=== PATIENT | male | born 1955 | race Caucasian/White ===

== ENCOUNTER 2024-08-13 01:46 | Inpatient (IN) | payer MEDICARE, MEDICAID ==
[~2024-08-13] VITALS: Ht 170.2 cm; Wt 57.2 kg
[~2024-08-13 01:46] MED LIST: LACT10SO7 PO
[2024-08-13] MEDS ORDERED: ONDANSETRON HCL 4MG/2ML INJ IV STA (03:09)
[2024-08-13 03:40] LABS: DIFFERENTIAL COMMENT 1; HEMATOCRIT. 32.2 % (42.0-52.0); HEMOGLOBIN. 10.7 g/dL (14.0-18.0); MEAN CORPUSCULAR HEMOGLOBIN 33.6 pg (28.0-32.0); MEAN CORPUSCULAR HGB CONC 33.4 g/dL (31.0-37.0); MEAN CORPUSCULAR VOLUME 100.8 fL (80.0-94.0); MEAN PLATELET VOLUME 8.1 fl (7.4-10.4); PLATELET 112 x1000/uL (130-400); RED BLOOD CELL COUNT 3.19 mill/uL (4.7-6.1); WHITE BLOOD COUNT 7.4 x1000/uL (4.5-11.0)
[2024-08-13 03:46] LABS: CHLORIDE 104 mEq/L (98-107); INR 1.1; POTASSIUM 5.7 mEq/L (3.5-5.1); PROTHROMBIN TIME 11.7 sec (9.6-11.0); SODIUM 130 mEq/L (136-145)
[2024-08-13 03:48] LABS: CARBON DIOXIDE 18 mEq/L (21-32)
[2024-08-13 03:49] LABS: CALCIUM 9.2 mg/dL (8.7-10.4)
[2024-08-13 03:54] LABS: AMMONIA 107 uMol/L (<32); GLUCOSE 128 mg/dL (70-105); UREA NITROGEN BLOOD 91 mg/dL (9-23)
[2024-08-13 03:55] LABS: ALANINE AMINOTRANSFERASE 614 IU/L (10-49); ALBUMIN 3.3 g/dL (3.2-4.8); ASPARTATE AMINOTRANSFERASE 697 IU/L (<34)
[2024-08-13 03:56] LABS: BILIRUBIN DIRECT 1.5 mg/dL (<=3.0); BILIRUBIN TOTAL 2.3 mg/dL (0.1-1.0); LACTIC ACID 2.3 mmol/L (0.4-2.0); PROTEIN TOTAL 5.4 g/dL (6.0-8.3)
[2024-08-13 03:59] LABS: CREATININE 2.5 mg/dL (0.6-1.3)
[2024-08-13 04:03] LABS: TROPONIN I HIGH SENSITIVITY 55 ng/L (3.0-53)
[2024-08-13] MEDS: ONDANSETRON HCL 4MG/2ML INJ IV NR (04:27)
[2024-08-13] MEDS ORDERED: DOCUSATE SODIUM 100MG CAPSULE PO PRN (05:30)
[2024-08-13] MEDS ORDERED: LORAZEPAM 0.5MG TABLET PO PRN (05:30)
[2024-08-13] MEDS ORDERED: ONDANSETRON HCL 4MG/2ML INJ IV PRN (05:30)
[2024-08-13] MEDS ORDERED: CLONIDINE 0.1MG TABLET PO PRN (05:30)
[2024-08-13] MEDS ORDERED: ENOXAPARIN 40MG/0.4ML SYR SUBCUT SCH (05:30)
[2024-08-13] MEDS ORDERED: GUAIFENESIN 200MG/10ML SUGAR FREE UDC PO PRN (05:30)
[2024-08-13 06:07] LABS: CREATINE KINASE 51 IU/L (46-171)
[2024-08-13] MEDS: DEXT 5%/0.9% NACL 1,000 ML IV SCH (06:16)
[2024-08-13] MEDS: LACTULOSE 20G/30ML UDC PO NR (06:16)
[2024-08-13] MEDS: DEXTROSE 50% WATER 50ML SYRINGE IV NR ×2 (06:45→18:38)
[2024-08-13] MEDS: INSULIN REGULAR (HUMULIN R) 1000UNITS/10ML VIAL IV NR ×2 (06:45→18:38)
[2024-08-13 07:19] LABS: PLATELET ESTIMATE SLIGHTLY DECREASED
[2024-08-13] MEDS: RIFAXIMIN 550 MG TABLET PO SCH (09:00)
[2024-08-13] MEDS: ENOXAPARIN 30MG/0.3ML SYR SUBCUT SCH (09:30)
[2024-08-13 11:48] LABS: POTASSIUM 5.7 mEq/L (3.5-5.1)
[2024-08-13 12:29] LABS: POTASSIUM 5.5 mEq/L (3.5-5.1)
[2024-08-13] MEDS: CALCIUM CHLORIDE 1GM/10ML SYR IV NR (18:16)
[2024-08-13] MEDS: SODIUM POLYSTYRENE SULFONATE 15 G/60 ML BOT PO NR (18:17)
[2024-08-13 19:29] VITALS: BP 154/83; PULSE 114; RESP 16; TEMP 36.16956; O2SAT 99
[2024-08-13 20:00] VITALS: BP 133/83; PULSE 104; RESP 15; TEMP 36.33624; O2SAT 100
[2024-08-13 21:14] LABS: CREATINE KINASE 43 IU/L (46-171)
[2024-08-13] MEDS: IPRATROPIUM/ALBUTEROL 0.5-3(2.5)MG/3ML NEB HHN PRN (21:30)
[2024-08-13 21:32] VITALS: PULSE 104; RESP 20; O2SAT 99
[2024-08-13 23:00] VITALS: BP 133/83; PULSE 104; RESP 16; TEMP 36.3624
[2024-08-14] VITALS: BP 106/64; PULSE 98; RESP 13; TEMP 35.72508; O2SAT 90
[2024-08-14 04:00] VITALS: BP 86/49; PULSE 42; RESP 14; TEMP 36.22512; O2SAT 92
[2024-08-14 07:39] LABS: CHLORIDE 106 mEq/L (98-107); SODIUM 132 mEq/L (136-145)
[2024-08-14 07:41] LABS: CALCIUM 9.7 mg/dL (8.7-10.4)
[2024-08-14 07:45] LABS: CREATININE 3.1 mg/dL (0.6-1.3)
[2024-08-14 07:46] LABS: GLUCOSE 99 mg/dL (70-105); UREA NITROGEN BLOOD 83 mg/dL (9-23)
[2024-08-14 07:49] LABS: HEMOGLOBIN 12.3 g/dL (14.0-18.0); MEAN CORPUSCULAR HEMOGLOBIN 33.4 pg (28.0-32.0); MEAN CORPUSCULAR HGB CONC 31.6 g/dL (31.0-37.0); MEAN CORPUSCULAR VOLUME 105.7 fL (80.0-94.0); PLATELET 100 x1000/uL (130-400); RED BLOOD CELL COUNT 3.69 mill/uL (4.7-6.1); WHITE BLOOD COUNT 9.2 x1000/uL (4.5-11.0)
[2024-08-14 08:08] VITALS: BP 78/36; PULSE 88; RESP 20; TEMP 35.89176; O2SAT 100
[2024-08-14 08:37] LABS: CARBON DIOXIDE < 10 mEq/L (21-32)
[2024-08-14 08:38] LABS: AMMONIA 114 uMol/L (<32)
[2024-08-14] MEDS ORDERED: LACTULOSE 20G/30ML UDC PO SCH (09:00)
[2024-08-14] MEDS: ALBUTEROL (0.083%) 2.5MG/3ML NEB HHN NR (09:30)
[2024-08-14] MEDS: SODIUM CHLORIDE 0.9% 500 ML IV ONE (09:47)
[2024-08-14] MEDS: SODIUM POLYSTYRENE SULFONATE 15 G/60 ML BOT PO NR (10:07)
[2024-08-14] MEDS: DEXTROSE 50% WATER 50ML SYRINGE IV NR (10:27)
[2024-08-14] MEDS: INSULIN REGULAR (HUMULIN R) 1000UNITS/10ML VIAL IV NR (10:31)
[2024-08-14] MEDS: SODIUM BICARBONATE 8.4% 50MEQ/50ML SYR IV NR ×2 (10:32→14:23)
[2024-08-14] MEDS: CALCIUM CHLORIDE 1GM/10ML SYR IV NR (10:35)
[2024-08-14] MEDS: LACTULOSE ENEMA 1,000ML BOTTLE PR NR (12:08)
[2024-08-14 12:10] VITALS: BP 78/44; PULSE 86; RESP 20; TEMP 35.89176; O2SAT 100
[2024-08-14 12:13] LABS: BG BASE EXCESS -13.7 mmol/L (-2.0-3.0); BG CARBOXYHEMOGLOBIN 0.3 % (0.5-1.5); BG FRACTION INSPIRED OXYGEN 32; BG HCO3 ACT 8.5 mmol/L (21.0-28.0); BG METHEMOGLOBIN 0.3 % (0.5-1.5); BG OXYHEMOGLOBIN 97.4 % (94.0-98.0); BG PCO2 13.6 mmHg (35.0-48.0); BG PH 7.413 (7.350-7.450); BG PO2 114.5 mmHg (83.0-108.0); BG SAMPLE SITE RIGHT FEMORAL; BG TOTAL HEMOGLOBIN 10.5 g/dL (13.5-17.5); BG VENT MODE NASAL CANNULA
[2024-08-14] MEDS ORDERED: MIDODRINE HCL 5MG TABLET PO SCH (13:00)
[2024-08-14] MEDS ORDERED: MIDODRINE HCL 5MG TABLET NG SCH (13:00)
[2024-08-14] MEDS: ALBUMIN HUMAN 25GM/100ML (25%) IV NR (14:29)
[2024-08-14] MEDS: LACTULOSE 20G/30ML UDC NG SCH (15:04)
[2024-08-14] MEDS: PANTOPRAZOLE SODIUM 40 MG/VIAL IV SCH (15:35)
[2024-08-14] MEDS: PIPERACILLIN/TAZO 3.375G/50ML 50 ML IV SCH (15:37)
[2024-08-14 16:00] VITALS: BP 84/49; PULSE 82; RESP 20; TEMP 36.44736; O2SAT 98
[2024-08-14 16:03] LABS: POTASSIUM 5.9 mEq/L (3.5-5.1)
[2024-08-14] MEDS: SODIUM BICARBONATE 150 MEQ in DEXTROSE 5% WATER 850 ML IV SCH (16:30)
[2024-08-14] MEDS: MIDODRINE HCL 5MG TABLET NG SCH (16:31)
[2024-08-14] MEDS ORDERED: LEVOFLOXACIN 500MG PREMIX 100 ML IV SCH (18:45)
[2024-08-14 20:00] VITALS: BP 79/54; PULSE 81; RESP 18; TEMP 36.22512; O2SAT 97
[2024-08-14 20:10] LABS: CLARITY URINE CLEAR (CLEAR); COLOR URINE DARK YELLOW (YELLOW); GLUCOSE URINE TRACE (NEGATIVE); KETONES URINE NEGATIVE (NEGATIVE); LEUKOCYTE ESTERASE URINE 1+ (NEGATIVE); NITRITE URINE POSITIVE (NEGATIVE); OCCULT BLOOD URINE NEGATIVE (NEGATIVE); PROTEIN URINE 1+ (NEGATIVE); SPECIFIC GRAVITY URINE 1.018 (1.005-1.030)
[2024-08-14 21:40] LABS: BACTERIA URINE 2+; RBC URINE 0-2 /hpf (0-2); SQUAMOUS EPITHELIAL CELL URINE FEW /lpf (RARE/1+)
[2024-08-14] MEDS: LEVOFLOXACIN 500MG PREMIX 100 ML IV SCH (22:23)
[2024-08-14] MEDS: RIFAXIMIN 550 MG TABLET NG SCH (22:23)
[2024-08-15] VITALS: BP 117/69; PULSE 85; RESP 18; TEMP 36.6696; O2SAT 98
[2024-08-15 04:00] VITALS: BP 92/53; PULSE 82; RESP 18; TEMP 36.83628; O2SAT 97
[2024-08-15 06:22] LABS: CARBON DIOXIDE 14 mEq/L (21-32); CHLORIDE 109 mEq/L (98-107); POTASSIUM 5.4 mEq/L (3.5-5.1); SODIUM 141 mEq/L (136-145)
[2024-08-15 06:23] LABS: CALCIUM 9.2 mg/dL (8.7-10.4)
[2024-08-15 06:26] LABS: AMMONIA 43 uMol/L (<32)
[2024-08-15 06:28] LABS: CREATININE 3.6 mg/dL (0.6-1.3); UREA NITROGEN BLOOD 96 mg/dL (9-23)
[2024-08-15 06:29] LABS: ALANINE AMINOTRANSFERASE 993 IU/L (10-49)
[2024-08-15 06:30] LABS: ALBUMIN 2.3 g/dL (3.2-4.8); GAMMA GLUTAMYL TRANSPEPTIDASE 294 IU/L (<73); PHOSPHORUS 4.1 mg/dL (2.5-4.9)
[2024-08-15 06:42] LABS: ASPARTATE AMINOTRANSFERASE 1382 IU/L (<34)
[2024-08-15 06:51] LABS: LACTIC ACID 8.2 mmol/L (0.4-2.0)
[2024-08-15 06:53] LABS: GLUCOSE 42 mg/dL (70-105)
[2024-08-15 08:00] VITALS: BP 90/50; PULSE 70; RESP 16; TEMP 36.6696; O2SAT 97
[2024-08-15] MEDS ORDERED: LACTULOSE ENEMA 1,000ML BOTTLE PR SCH (09:00)
[2024-08-15] MEDS ORDERED: LACTULOSE 20G/30ML UDC PR SCH (09:00)
[2024-08-15] MEDS ORDERED: SODIUM POLYSTYRENE SULFONATE 15 G/60 ML BOT PO ONE (09:45)
[2024-08-15 10:29] LABS: HEMATOCRIT. 27.4 % (42.0-52.0); HEMOGLOBIN. 9.2 g/dL (14.0-18.0); MEAN CORPUSCULAR HEMOGLOBIN 34.7 pg (28.0-32.0); MEAN CORPUSCULAR HGB CONC 33.5 g/dL (31.0-37.0); MEAN CORPUSCULAR VOLUME 103.4 fL (80.0-94.0); MEAN PLATELET VOLUME 11.1 fl (7.4-10.4); RED BLOOD CELL COUNT 2.65 mill/uL (4.7-6.1); RED CELL DISTRIBUTION WIDTH 18.1 % (11.6-14.6)
[2024-08-15 10:57] LABS: DIFFERENTIAL COMMENT 1
[2024-08-15 10:59] LABS: PLATELET 43 x1000/uL (130-400)
[2024-08-15] MEDS: SODIUM ZIRCONIUM CYCLOSILICATE 10GM/PACKET PO NR (11:01)
[2024-08-15] MEDS: MAGNESIUM 2 G PREMIX 50 ML IV NR (11:07)
[2024-08-15 12:00] VITALS: BP 59/33; PULSE 64; RESP 18; TEMP 35.94732; O2SAT 98
[2024-08-15] MEDS: ALBUMIN HUMAN 25GM/100ML (25%) IV NR (13:40)
[2024-08-15 16:00] VITALS: BP 51/28; PULSE 67; RESP 18; TEMP 36.00288; O2SAT 98
[2024-08-15 16:17] LABS: ANISOCYTOSIS 2+; NUCLEATED RED BLOOD CELLS 9 /100 WBC; PLATELET ESTIMATE MARKEDLY DECREASED
[2024-08-15] MEDS ORDERED: DOCUSATE SODIUM SUGAR FREE 100MG/10ML UDC NG PRN (21:15)
[2024-08-15 22:12] LABS: POTASSIUM 5.2 mEq/L (3.5-5.1)
[2024-08-15 22:14] LABS: CALCIUM 8.9 mg/dL (8.7-10.4)
[2024-08-15 22:18] LABS: CREATININE 3.7 mg/dL (0.6-1.3)
[2024-08-16] VITALS (12 sets, daily range): BP systolic 45–58; BP diastolic 25–29; PULSE 20–56; RESP 20–24; TEMP 34.78056–36.3918; O2SAT 94–97
[2024-08-16 06:42] LABS: POTASSIUM 5.3 mEq/L (3.5-5.1)
[2024-08-16 06:43] LABS: CALCIUM 8.8 mg/dL (8.7-10.4)
[2024-08-16 06:44] LABS: HEMATOCRIT 27.2 % (42.0-52.0); HEMOGLOBIN 9.1 g/dL (14.0-18.0); MEAN CORPUSCULAR HGB CONC 33.3 g/dL (31.0-37.0); MEAN CORPUSCULAR VOLUME 104.9 fL (80.0-94.0); RED CELL DISTRIBUTION WIDTH 19.6 % (11.6-14.6)
[2024-08-16 06:48] LABS: CREATININE 3.8 mg/dL (0.6-1.3)
[2024-08-16 06:51] LABS: PLATELET 9 x1000/uL (130-400)
[2024-08-16 06:59] LABS: LACTIC ACID 9.4 mmol/L (0.4-2.0)
[2024-08-17] VITALS: BP 37/15; PULSE 42; RESP 14; TEMP 35.61396; O2SAT 94
[2024-08-17] LABS: HEMATOCRIT. 29.2 % (42.0-52.0); MEAN CORPUSCULAR HEMOGLOBIN 35.1 pg (28.0-32.0); MEAN CORPUSCULAR HGB CONC 30.9 g/dL (31.0-37.0); MEAN CORPUSCULAR VOLUME 113.3 fL (80.0-94.0); MEAN PLATELET VOLUME 9.8 fl (7.4-10.4); RED BLOOD CELL COUNT 2.58 mill/uL (4.7-6.1); RED CELL DISTRIBUTION WIDTH 20.9 % (11.6-14.6)
[2024-08-17 00:44] LABS: DIFFERENTIAL COMMENT 1; PLATELET 8 x1000/uL (130-400)
[2024-08-17 03:27] LABS: NUCLEATED RED BLOOD CELLS 6 /100 WBC
[2024-08-17 03:28] LABS: PLATELET ESTIMATE DECREASED
== END 2024-08-17 03:27 | DRG 871 ==
LOC: ER 01:46 → 5WST 19:06 → 8WST 19:45 → 6EST 08-15 09:34
PROVIDERS: ADMIT Preventive Medicine Clinical Informatics; ATTEND Preventive Medicine Clinical Informatics
PROC: 30233R1 Transfusion of Nonautologous Platelets into Peripheral Vein, Percutaneous Approach (ICD-10-PCS; principal; 2024-08-16)
DX: A41.9 Sepsis, unspecified organism (principal); G93.41 Metabolic encephalopathy; L89.153 Pressure ulcer of sacral region, stage 3; N17.0 Acute kidney failure with tubular necrosis; E87.1 Hypo-osmolality and hyponatremia; E46 Unspecified protein-calorie malnutrition; R64 Cachexia; E87.4 Mixed disorder of acid-base balance; K76.6 Portal hypertension; Z68.1 Body mass index [BMI] 19.9 or less, adult; R65.20 Severe sepsis without septic shock; K70.31 Alcoholic cirrhosis of liver with ascites; E87.5 Hyperkalemia; D69.6 Thrombocytopenia, unspecified; Z66 Do not resuscitate; S80.01XA Contusion of right knee, initial encounter; X58.XXXA Exposure to other specified factors, initial encounter; E86.0 Dehydration; K40.90 Unilateral inguinal hernia, without obstruction or gangrene, not specified as recurrent; L89.626 Pressure-induced deep tissue damage of left heel; N20.0 Calculus of kidney; F10.11 Alcohol abuse, in remission; F41.9 Anxiety disorder, unspecified; K21.9 Gastro-esophageal reflux disease without esophagitis; F03.90 Unspecified dementia, unspecified severity, without behavioral disturbance, psychotic disturbance, mood disturbance, and anxiety; E83.42 Hypomagnesemia; Z74.01 Bed confinement status; Z51.5 Encounter for palliative care; Z82.49 Family history of ischemic heart disease and other diseases of the circulatory system; Y93.89 Activity, other specified; Y92.89 Other specified places as the place of occurrence of the external cause; Y99.8 Other external cause status
CPT/HCPCS: 36415; 36600; 71045; 74176; 76705; 80048; 80076; 81003; 82140; 82375; 82550; 82805; 82962; 82977; 83605; 83735; 83880; 84100; 84132; 84145; 84484; 85025; 85027; 86850; 86900; 93005; 94640; 99291; C1893; J1650; J1815; J1956; J2405; J2470; J2543; J3475; J3490; J7042; J7070; P9034; P9047